=== PATIENT | female | born 1985 | race Two or more races ===

== ENCOUNTER 2024-11-25 20:40 | Emergency (ER) | payer OTHER ==
[~2024-11-25] VITALS: Ht 160 cm; Wt 100.0 kg
[2024-11-25] MEDS: HYDROcodone-ACET 10/325MG TAB PO ONE (23:15)
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
--- NOTE | 2024-11-26 00:02 | DVH ---
CLINICAL INDICATION: Hand injury TECHNIQUE: XY R HAND 3 VIEW XRAY Comparison: None FINDINGS/IMPRESSION: : Moderately displaced partially comminuted fractures of the bases of the 2nd through 4th proximal phal anges resulting in moderate dorsal angulation. Moderate dorsal soft tissue swelling.
[2024-11-26 01:00] VITALS: BP 124/88; TEMP 98.9
[2024-11-26 01:05] VITALS: PULSE 85; RESP 18; O2SAT 98
[2024-11-26] MEDS ORDERED: ACET650T12 PO (01:15)
[2024-11-26] MEDS ORDERED: HYDR-4902 PO (01:15)
== END 2024-11-26 02:18 | disposition home or self-care (01) ==
LOC: ER 20:40
DX: S62.610A Displaced fracture of proximal phalanx of right index finger, initial encounter for closed fracture (principal); V00.148A Other scooter (nonmotorized) accident, initial encounter; Y93.I9 Activity, other involving external motion; Y92.488 Other paved roadways as the place of occurrence of the external cause; Y99.8 Other external cause status
CPT/HCPCS: 29130; 73130